=== PATIENT | male | born 1945 | race Caucasian/White ===

== ENCOUNTER 2016-04-25 12:35 | Emergency (ER) | payer MEDICARE, OTHER ==
--- NOTE | 2016-04-25 13:54 | PICIS ---
[facility] EMERGENCY RECORD TRIAGE (12:39 JSMI) PATIENT: NAME: Eris Etienne JR, AGE: 71, GENDER: male, : Sat 1945, TIME OF GREET: SunApr 25, 2016 12:35, PREFERRED LANGUAGE: Tajik, ETHNICITY: Not or , ECODE BILLING MAP: [facility], SSN: [id number], Zip Code: [address], KG WEIGHT: [phone], PHONE: , , , PERSON ID: [id number], PAYMENT: [employer], PCP: MD Hutchins Kyle. (12:39 JSMI) COMPLAINT: right rib pain. (12:39 JSMI) ADMISSION: URGENCY: 5 Fast Track, ADMISSION SOURCE: Home, TRANSPORT: CAR, BED: TRIAGE. (12:39 JSMI) ASSESSMENT: Assessment: PT PRESENTS AWAKE ALERT AND ORIENTED. SKIN PINK WARM AND DRY., Symptoms began 04/25/2016 1800. (12:50 JSMI) IMMUNIZATIONS: Flu vaccine not up to date, Tetanus not up to date, Pneumococcal vaccine not up to date. (12:50 JSMI) SIRS SCORING: Heart Rate 55-109 (0), Temp range 96.8-101.1 (0), respiratory rate 12-24 (0), Mental Status altered: no (0), Infection or Suspected Infection: No. (12:50 JSMI) PROVIDERS: TRIAGE NURSE: Pricilla Clemente RN. (12:39 JSMI) VITAL SIGNS: BP 136/97, Pulse 75, Resp 16, Temp 98.7, (Oral), Pain 2, O2 Sat 95, on Room Air, Time 04/25/2016 12:45. (12:45 JSMI) KNOWN ALLERGIES No Known Drug Allergies CURRENT MEDICATIONS Lyrica: CAPSULE : Strength - 75 mg : ORAL Patient Dose: 2 times a day. (12:41 JSMI) traMADol: TABLET : Strength - 50 mg : ORAL Patient Dose: every 6 hours PRN. (12:42 JSMI) amLODIPine: TABLET : Strength - 10 mg : ORAL Patient Dose: once a day. (12:42 JSMI) lisinopril: TABLET : Strength - 10 mg : ORAL Patient Dose: once a day. (12:43 JSMI) testosterone cypionate: VIAL (ML) : Strength - 100 mg/mL : INTRAMUSCULAR Patient Dose: See Notes.every 4 weeks. (12:44 JSMI) VIAL (ML) : Strength - 200 mg/mL : INTRAMUSCULAR Patient Dose: Unknown. (12:44 JSMI) temazepam: CAPSULE : Strength - 30 mg : ORAL Patient Dose: once a day (at bedtime). (12:45 JSMI) VITAL SIGNS (12:45 JSMI) &a-1R&a+25V*p+0X*[id number]*c202B*c15G*c2P*p-0X&a-25V&a+1R Name: Eris Etienne JR : 1945 M71 MedRec: [id number] AcctNum: [id number] Prepared: Courtney Apr 25, 2016 13:49 by Interface Page 1 of 3 pMD [facility] EMERGENCY RECORD VITAL SIGNS: BP: 136/97, Pulse: 75, Resp: 16, Temp: 98.7 (Oral), Pain: 2, O2 sat: 95 on Room Air, Time: 04/25/2016 12:45. NURSING ASSESSMENT: FOCUSED (12:51 JSMI) CONSTITUTIONAL: Complex assessment performed, Patient arrives ambulatory, Gait steady, History obtained from patient, Patient appears comfortable, Patient cooperative, Patient alert, Oriented to person, place and time, Skin warm, Skin dry, Skin normal in color, Mucous membranes pink, Mucous membranes moist, Patient is well-groomed, Patient complains of right rib pain, Pt lost his footing last night and fell onto right side. PAIN: aching pain. EYES: Focused eye assessment finding include pupils equally round and reactive to light. NEURO: Focused neuro assessment findings include patient alert, cooperative. GCS: Eye opening: (4) - Spontaneous, Verbal: (5) - Oriented/conversive, Motor: (6) - Obeys commands/Spontaneous, GCS Total: 15. RESPIRATORY: Focused respiratory assessment findings include breath sounds clear. ABDOMEN: Focused abdominal assessment findings include abdomen soft, non tender. NURSING PROCEDURE: DISCHARGE NOTE (13:38 LGIB) DISCHARGE: Patient discharged to home, ambulating without assistance, driving self, unaccompanied, Summary of Care printed/ provided, Patient requested and was provided an electronic copy of Discharge Instructions, Discharge instructions given to patient, Simple or moderate discharge teaching performed, Prescriptions given and instructions on side effects given, Above person(s) verbalized understanding of discharge instructions and follow-up care, Patient treated and evaluated by physician. BELONGINGS: Belongings and valuables with patient at time of discharge include:, Belongings remain with patient, Valuables remain with patient. ORDER DETAILS Order Name: XR Chest Pa & Lat STANDARD, Status: Active, Time: 13:10 04/25/2016, User: DAYO, - Ordered for: DO Reyes Joseph, - Entered by: DO Reyes Joseph - SunApr 25, 2016 13:10, - Quantity: 1. PAST MEDICAL HISTORY (12:50 JSMI) MEDICAL HISTORY: Past medical history includes history of hyperlipidemia, high triglycerides, Past medical history includes history of hypertension, which has been treated, Past medical history includes musculoskeletal &a-1R&a+25V*p+0X*k8547X*c202B*c15G*c2P*p-0X&a-25V&a+1R Name: Eris Etienne Yasmany GALAN : 1945 M71 MedRec: [id number] AcctNum: [id number] Prepared: SunApr 25, 2016 13:49 by Interface Page 2 of 3 pMD [facility] EMERGENCY RECORD disorder, osteoarthritis, Past medical history includes renal disease, chronic kidney disease. MALE SURGICAL HISTORY: Surgical history of orthopedic surgery, bilateral SI joint fusion, S1- L3 fusion, Notes: bilateral shoulder repair,. PSYCHIATRIC HISTORY: No previous psychiatric history. SOCIAL HISTORY: Patient denies alcohol use, Patient denies drug use, Patient has no smoking history. EVENTS TRANSFER: Triage to Emergency Triage. (SunApr 25, 2016 12:39 JSMI) Emergency Triage to Emergency Room -03. (12:59 JSMI) Removed from Emergency Emergency Room -03. (13:40 LGIB) PROBLEM LIST No recorded problems DIAGNOSIS (13:35 JPIP) FINAL: PRIMARY: rib contusion. DISPOSITION PATIENT: Disposition Type: Discharge, Disposition: *Discharge Home, Condition: Good. (13:35 JPIP) Patient left the department. (13:40 LGIB) INSTRUCTION (13:35 JPIP) DISCHARGE: RIB CONTUSION. FOLLOWUP: MD Liset, [place], [facility], [address] [place] [address], [place] [address], . SPECIAL: Follow up with Primary Care Physician within 72 hours Return to the Emergency Department for increased symptoms problems or concerns Take acetaminophen for pain. PRESCRIPTION (13:35 JPIP) Ultram: TABLET : 50 mg : ORAL : Quantity: 1-2 Unit: tab(s) Route: ORAL Schedule: every 8 hours PRN Dispense: 30 May substitute. Refills: No Refills . NOTES: for pain No refills. IMAGING (13:39 LGIB) *DISCHARGE INSTRUCTIONS RECEIPT: Image captured from scanner. *SUPPLY CHARGE SHEET: Image captured from scanner. Flores: DAYO=DO Reyes Joseph JSMI=ARIANA Clemente, Pricilla LGIB=ARIANA Blanton, Poonam &a-1R&a+25V*p+0X*[id number]*c202B*c15G*c2P*p-0X&a-25V&a+1R Name: Eris Etienne JR : 1945 M71 MedRec: [id number] AcctNum: [id number] Prepared: Courtney Apr 25, 2016 13:49 by Interface Page 3 of 3 pMD MTDD
--- NOTE | 2016-04-25 22:08 | RAD ---
CHEST TWO VIEWS 04/25/16 No comparison studies were available. The heart is normal in size. The mediastinum shows no widening or shift. The trachea is midline. I s ee no bony issues around the right axillary region. Degenerative changes are present in the spine as well a few very slight anterior compressions in the mid thoracic region that do not appear acute. IMPRESSION: Old changes but no acute finding. POS: HOME
== END 2016-04-25 13:38 | disposition home or self-care (01) ==
LOC: BURERS 12:35
DX: S20.211A Contusion of right front wall of thorax, initial encounter (principal); E78.5 Hyperlipidemia, unspecified; I12.9 Hypertensive chronic kidney disease with stage 1 through stage 4 chronic kidney disease, or unspecified chronic kidney disease; N18.9 Chronic kidney disease, unspecified; Z79.899 Other long term (current) drug therapy; W19.XXXA Unspecified fall, initial encounter
CPT/HCPCS: 71020; 99284

== ENCOUNTER 2016-07-25 09:52 | Outpatient (CLI) | payer MEDICARE, OTHER ==
[2016-07-25 11:26] LABS: #Basophils 0.1 thou/uL (0.0-0.2); #Eosinphils 0.3 thou/uL (0.0-0.7); #Lymphocytes 3.2 thou/uL (1.20-3.40); #Monocytes 0.6 thou/uL (0.11-0.59); %Basophils 0.9 % (0.0-1.0); %Eosinophils 4.3 % (0.0-10.0); %Lymphocytes 38.7 % (21.0-51.0); %Monocytes 7.2 % (0.0-10.0); %Neutrophils 48.8 % (42.0-75.0); Hemoglobin 15.9 g/dL (14.0-18.0); Mean Corpuscular HGB CONC 35.2 g/dL (32.0-36.0); Mean Corpuscular Hemoglobin 33.4 pg (27.0-31.0); Mean Corpuscular Volume 94.9 fl (80.0-94.0); Mean Platelet Volume 7.7 fL (7.4-10.4); Platelet Count 175 thou/uL (130-400); RBC Distribution Width 12.5 % (11.5-14.5); Red Blood Cell (RBC) Count 4.77 mill/uL (4.70-6.10); White Blood Cell (WBC) Count 8.1 thou/uL (4.8-10.8)
[2016-07-25 11:32] LABS: ALT (SGPT) 24 U/L (0-55); AST (SGOT) 16 U/L (5-34); Albumin 4.2 g/dL (3.4-4.8); Alkaline Phosphatase 73 U/L (40-150); Anion Gap 14 mmol/L (10-20); BUN (Urea Nitrogen) 22 mg/dL (8.4-25.7); Bilirubin, Total 0.5 mg/dL (0.2-1.2); Calc. Creatinine Clearance 0 mL/min (70-130); Calcium 9.4 mg/dL (7.8-10.44); Carbon Dioxide 26 mmol/L (23-31); Cardiac Risk 4.6 (Less than 4.5); Chloride 108 mmol/L (98-107); Cholesterol 116 mg/dL (< 200 Desired); Estimated GFR-MDRD 47; Globulin 2.7 g/dL (2.4-3.5); Glucose 117 mg/dL (80-115); HDL Cholesterol 25 mg/dL (>60 Neg Risk); LDL Cholesterol, Calculated 15 mg/dL; Potassium 4.5 mmol/L (3.5-5.1); Protein, Total 6.9 g/dL (5.8-8.1); Sodium 143 mmol/L (136-145); Triglycerides 382 mg/dL (Less than 150)
== END 2016-07-25 09:53 | disposition home or self-care (01) ==
LOC: HPCALD 09:52
PROVIDERS: ATTEND Family Medicine
DX: E78.1 Pure hyperglyceridemia (principal); E53.8 Deficiency of other specified B group vitamins; E29.1 Testicular hypofunction; I10 Essential (primary) hypertension
CPT/HCPCS: 36415; 80053; 80061; 82607; 84403; 85025

== ENCOUNTER 2016-10-18 13:39 | Outpatient (CLI) | payer MEDICARE, OTHER ==
[2016-10-18 14:14] LABS: #Basophils 0.1 thou/uL (0.0-0.2); #Eosinphils 0.3 thou/uL (0.0-0.7); #Lymphocytes 2.8 thou/uL (1.20-3.40); #Monocytes 0.7 thou/uL (0.11-0.59); #Neutrophils 4.9 thou/uL (1.40-6.50); %Basophils 1.1 % (0.0-1.0); %Eosinophils 3.8 % (0.0-10.0); %Lymphocytes 31.7 % (21.0-51.0); %Monocytes 8.1 % (0.0-10.0); %Neutrophils 55.4 % (42.0-75.0); Hemoglobin 16.7 g/dL (14.0-18.0); Mean Corpuscular HGB CONC 33.8 g/dL (32.0-36.0); Mean Corpuscular Hemoglobin 31.6 pg (27.0-31.0); Mean Corpuscular Volume 93.4 fl (80.0-94.0); Mean Platelet Volume 7.6 fL (7.4-10.4); Platelet Count 186 thou/uL (130-400); RBC Distribution Width 12.5 % (11.5-14.5); Red Blood Cell (RBC) Count 5.28 mill/uL (4.70-6.10); White Blood Cell (WBC) Count 8.8 thou/uL (4.8-10.8)
[2016-10-18 14:31] LABS: Bacteria/HPF None Seen HPF (None Seen); Bilirubin Negative (Negative); Blood, Urine Trace (Negative); Clarity Clear (Clear); Crystals/HPF 1+ TRIPLE PHOS HPF (Negative); Glucose, Urine (Dipstick) Negative (Negative); Leukocyte Negative (Negative); Nitrite Negative (Negative); Protein, Urine (Dipstick) Negative (Neg-Trace); Specific Gravity, Urine 1.025 (1.005-1.030); Squamous Epithelial 0-3 HPF (0-3); Urobilinogen 0.2 mg/dL (0.2-1.0); WBC/HPF None Seen HPF (0-3)
[2016-10-18 14:51] LABS: Hemoglobin A1c 5.8 % (4.0-6.0)
[2016-10-18 14:52] LABS: ALT (SGPT) 31 U/L (8-55); AST (SGOT) 18 U/L (5-34); Albumin 4.4 g/dL (3.4-4.8); Alkaline Phosphatase 68 U/L (40-150); Anion Gap 15 mmol/L (10-20); BUN (Urea Nitrogen) 28 mg/dL (8.4-25.7); Bilirubin, Total 0.9 mg/dL (0.2-1.2); Calc. Creatinine Clearance 0 mL/min (70-130); Calcium 9.9 mg/dL (7.8-10.44); Carbon Dioxide 26 mmol/L (23-31); Chloride 107 mmol/L (98-107); Estimated GFR-MDRD 38; Globulin 3.1 g/dL (2.4-3.5); Glucose 133 mg/dL (80-115); Potassium 4.7 mmol/L (3.5-5.1); Protein, Total 7.5 g/dL (5.8-8.1); Sodium 143 mmol/L (136-145); Uric Acid 6.7 mg/dL (3.5-7.2)
[2016-10-18 17:34] LABS: Phosphorus 4.1 mg/dL (2.3-4.7)
[2016-10-18 18:13] LABS: Creatinine, Urine 176.35 mg/dL (63-166); Protein, Urine Random Quant Less than 10 mg/dL
== END 2016-10-18 13:40 | disposition home or self-care (01) ==
LOC: BURLAB 13:39
PROVIDERS: ATTEND Family Medicine
DX: I12.9 Hypertensive chronic kidney disease with stage 1 through stage 4 chronic kidney disease, or unspecified chronic kidney disease (principal); N18.3 Chronic kidney disease, stage 3 (moderate); N40.0 Benign prostatic hyperplasia without lower urinary tract symptoms; M10.9 Gout, unspecified; R80.9 Proteinuria, unspecified; R73.9 Hyperglycemia, unspecified; E29.1 Testicular hypofunction
CPT/HCPCS: 36415; 80053; 81001; 82570; 83036; 84100; 84156; 84403; 84550; 85025; 85652; G0103